=== PATIENT | male | born 1940 | race Caucasian/White ===

== ENCOUNTER 2018-05-15 14:36 | Inpatient (IN) | payer OTHER ==
[~2018-05-15] VITALS: Ht 170.2 cm; Wt 68.4 kg
--- NOTE | ~2018-05-15 | PATH ---
[facility] [address] [place] [address] PATHOLOGY RPT PROCEDURE Name: MOONMARYJANE E Room #: 212-P DIS IN M.R.#: [id number] Admission: 05/15/18 Date of : 44 Discharge: 05/18/18 Report #: [id number] Path Case #: [id number] [facility] Accession Number: [id number] . 01 Material submitted: . BIOPSY OF H.PYLORI GASTRIC . 01 Clinical history: . Pre-OP DX: Melena, abdominal pain, nausea Post-OP DX: Duodenal ulcers . 02 Diagnosis: Gastric mucosa, "H. pylori", endoscopic biopsy: - Gastric mucosa showing Helicobacter pylori-induced moderate active gastritis (properly controlled immunohistochemical stain performed). - Negative for intestinal metaplasia or atrophy. (IUV:zoraida; 05/19/2018) QMS/05/20/2018 . 02 Electronically signed: . Elizabeth Gregory MD, Pathologist NPI- [id number] . 01 Gross description: . Received in formalin labeled "Maryjane Mix BX of H. pylori," and additionally labeled on the requisition as "gastric per Dr. Gregory," are 2 segments of baca soft tissue measuring 0.6 x 0.2 x 0.2 cm in aggregate dimensions and measuring 0.3 cm each in maximum dimension. The specimen is submitted entirely in cassette A1. (TSD; 05/16/2018) TOB/TOB . 02 Pathologist provided ICD-10: K29.70, B96.81 . 02 CPT . 353612, X54196 Performed at: [address], [place] [id number] MD Wilfrid Aleman MD Phone: [phone] Performed at: [address] [id number] MD Elizabeth Gregory MD Phone: [phone]
--- NOTE | ~2018-05-15 | EKG ---
[place] [address] [facility] [employer] [place] [address] ELECTROCARDIOGRAM REPORT Name: MARYJANE MUSTAFA Room #: 212-P ADM IN M.R.#: [id number] Admission: 05/15/18 Attend Phys: Eriberto Olsen MD Discharge: Date of : 44 Report #: [id number] THIS REPORT FOR: //name// [facility] Test Date: 2018-05-16 Test Time: 19:58:56 Pat Name: MARYJANE MUSTAFA Department: Room: 212 P Gender: M [employer] Pricer: Katherin ANTHONY : 1940 Requested By: Eriberto Olsen Order Number: [id number] MD: Sky Ernst Measurements Intervals [place] Rate: 63 P: 76 DE: 181 QRS: -8 QRSD: 100 T: 66 QT: 382 QTc: 392 Interpretive Statements Sinus rhythm RSR' in V1 or V2, probably normal variant Baseline wander in lead(s) V6 Compared to ECG 05/15/2018 17:30:39 Sinus rhythm has replaced atrial fibrillation Electronically Signed On 05-17-2018 10:55:13 CDT by Sky Ernst [email or web address] <ELECTRONICALLY SIGNED> By: Sky Ernst MD, [facility] 05/17/18 1055 57 57 Sky Ernst MD, [facility] /EPI
--- NOTE | ~2018-05-15 | EKG ---
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: [facility] : 1940 Requested By: Cristal Jacob Order Number: [id number] MD: Sky Ernst Measurements Intervals [place] Rate: 155 P: NC: QRS: -49 QRSD: 86 T: 91 QT: 298 QTc: 479 Interpretive Statements Atrial fibrillation with rapid V-rate LAD Repolarization abnormality, prob rate related No previous ECG available for comparison Electronically Signed On 05-16-2018 8:08:42 CDT by Sky Ernst [email or web address] <ELECTRONICALLY SIGNED> By: Sky Ernst MD, [facility] 05/16/18 0808 [id number] 173 Sky Ernst MD, [facility] /EPI
--- NOTE | ~2018-05-15 | 2DMMODE ---
[facility] [address] [place] [address] 2 D/M-MODE ECHOCARDIOGRAM Name: MARYJANE MUSTAFA Room #: 212-P [facility] IN .R.#: [id number] Admission: 05/15/18 Attend Phys: Eriberto Olsen, Discharge: Date of : 44 Date of Service: 05/16/18 0918 Report #: [id number] THIS REPORT FOR: //name// APPROVED REPORT Study performed: 05/16/2018 08:25:04 EXAM: Comprehensive 2D, Doppler, and color-flow Echocardiogram Patient Location: Bedside Room #: [facility] Status: routine BSA: 1.77 HR: 90 bpm BP: 114/74 mmHg Rhythm: Atrial Fibrillation Other Information Study Quality: Adequate Indications Atrial Fibrillation 2D Dimensions RVDd: 27.76 mm LVEF(%): 65.62 (>50%) IVSd: 10.97 (7-11mm) LVOT Diam: 20.58 (18-24mm) LVDd: 40.40 mm PWd: 11.97 (7-11mm) Ascending Ao: 36.81 (22-36mm) LVDs: 26.01 (25-40mm) Aortic Root: 32.90 mm IVC: 16.00 mm Keith's LVEF: 65.62 % Volumes Left Atrial Volume (Systole) Single Plane 4CH: 32.89 mL Single Plane 2CH: 37.95 mL LA ESV Index: 24.00 mL/m2 Aortic Valve AoV Peak Hesham.: 1.36 m/s AO Peak Gr.: 7.39 mmHg LVOT Max P.40 mmHg LVOT Max V: 1.27 m/s ALFRED Vmax: 3.09 cm2 Pulmonary Valve PV Peak Hesham.: 1.01 m/s PV Peak Gr.: 4.07 mmHg [facility] [place] [address] 2 D/M-MODE ECHOCARDIOGRAM Name: MOONMARYJANE E Room #: 212-P [facility] IN .R.#: [id number] Admission: 05/15/18 Attend Phys: Eriberto Olsen, Discharge: Date of : 44 Date of Service: 05/16/18 0918 Report #: [id number] Tricuspid Valve TR Peak Hesham.: 2.28 m/s TR Peak Gr.: 20.82 mmHg PA Pressure: 26.00 mmHg Left Ventricle The left ventricle is normal size. There is normal LV segmental wall motion. There is normal left ventricular wall thickness. Left ventricular systolic function is normal. The left ventricular ejection fraction is within the normal range. LVEF is 60-65%. This study is not technically sufficient to allow evaluation of the LV diastolic function. Right Ventricle The right ventricle is normal size. The right ventricular systolic function is normal. Atria The left atrium size is normal. The right atrium size is normal. Aortic Valve Aortic valve is not well visualized. No aortic regurgitation is present. There is no aortic valvular stenosis. Mitral Valve The mitral valve is normal in structure. There is no mitral valve regurgitation noted. No evidence of mitral valve stenosis. Tricuspid Valve The tricuspid valve is normal in structure. There is trace tricuspid regurgitation. Estimated PAP 26 mmHg. There is no pulmonary hypertension. Pulmonic Valve The pulmonary valve is normal in structure. There is no pulmonic valvular regurgitation. Great Vessels The aortic root is normal in size. IVC is normal in size and collapses with >50% inspiration Pericardium There is no pericardial effusion. <Conclusion> [facility] [address] [place] [address] 2 D/M-MODE ECHOCARDIOGRAM Name: MARYJANE MUSTAFA Room #: 212-P [facility] IN ..#: [id number] Admission: 05/15/18 Attend Phys: Eriberto Olsen, Discharge: Date of : 44 Date of Service: 05/16/18 0918 Report #: [id number] Left ventricular systolic function is normal. There is normal LV segmental wall motion. LVEF is 60-65%. Aortic valve is not well visualized. No aortic regurgitation or stenosis The mitral valve is normal in structure. No mitral valve regurgitation. There is trace tricuspid regurgitation. Estimated pulmonary artery pressure of 26 mmHg. There is no pericardial effusion. <ELECTRONICALLY SIGNED> By: Sky Ernst MD, [facility] 05/16/18917 7 7 Sky Ernst MD, [facility] /INF
--- NOTE | ~2018-05-15 | EKG ---
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 : 1940 Requested By: Sky Ernst Order Number: [id number] MD: Sky Ernst Measurements Intervals [place] Rate: 56 P: 49 [place]: 178 QRS: -17 QRSD: 98 T: 61 QT: 423 QTc: 409 Interpretive Statements Sinus bradycardia Borderline left axis deviation Abnormal R-wave progression, early transition Consider anterior infarct Baseline wander in lead(s) I,II,aVR Compared to ECG 05/16/2018 19:58:56 Septal Q waves are more prominent Electronically Signed On 05-18-2018 13:54:26 CDT by Sky Ernst [email or web address] <ELECTRONICALLY SIGNED> By: Sky Ernst MD, [facility] 05/18/18 1354 0741 0741 Sky Ernst MD, [facility] /EPI
[2018-05-15 14:47] VITALS: BP 135/85
[2018-05-15 15:31] LABS: HEMATOCRIT 37.1 % (42.0-52.0); HEMOGLOBIN 12.7 gm/dL (14.0-18.0); MCH 31.5 pg (26.0-34.0); MCHC 34.3 g/dL (28.0-37.0); MCV 91.6 fL (80.0-100.0); RBC 4.05 mil/uL (4.50-6.00); WBC 9.9 thou/uL (4.0-11.0)
[2018-05-15 15:37] LABS: CALCIUM 8.6 mg/dL (8.5-10.1); CREATININE 1.2 mg/dL (0.7-1.3)
[2018-05-15 15:43] LABS: ALBUMIN 3.7 g/dL (3.4-5.0); TOTAL BILIRUBIN 0.9 mg/dL (<0.1-1.0); TOTAL PROTEIN 7.1 g/dL (6.4-8.2)
[2018-05-15 15:52] LABS: URINE BILIRUBIN NEGATIVE (Negative); URINE BLOOD NEGATIVE (Negative); URINE CLARITY CLEAR; URINE COLOR YELLOW; URINE GLUCOSE-RANDOM* NEGATIVE (Negative); URINE KETONES TRACE (Negative); URINE LEUKOCYTES NEGATIVE (Negative); URINE NITRITE NEGATIVE (Negative); URINE PROTEIN (DIPSTICK) NEGATIVE (Negative); URINE SPECIFIC GRAVITY 1.025 (1.005-1.035); URINE UROBILINOGEN 0.2 E.U./dl (0.2-1.0)
[2018-05-15 18:48] VITALS: BP 105/78
[2018-05-15 19:10] VITALS: BP 102/58
[2018-05-15 19:40] VITALS: BP 141/89
[2018-05-15] MEDS ORDERED: ASPIR 8181 MG PO (20:19)
[2018-05-15] MEDS ORDERED: ANTACID325 MG PO (20:20)
[2018-05-15] MEDS ORDERED: MILK OF MA2400 MG/10 PO (20:22)
[2018-05-15] MEDS ORDERED: IMODIUM A-D2 MG PO (20:22)
[2018-05-15 21:13] LABS: HEMATOCRIT 31.6 % (42.0-52.0); HEMOGLOBIN 11.1 gm/dL (14.0-18.0)
[2018-05-16 00:45] VITALS: BP 109/69
[2018-05-16 04:38] VITALS: BP 107/67
[2018-05-16 05:00] LABS: CALCIUM 7.9 mg/dL (8.5-10.1); CREATININE 0.9 mg/dL (0.7-1.3); POTASSIUM 4.2 mmol/L (3.5-5.1); TOTAL PROTEIN 5.7 g/dL (6.4-8.2)
[2018-05-16 07:34] VITALS: BP 114/74
[2018-05-16 09:36] LABS: CHOLESTEROL 144 mg/dL (<200); HDL CHOLESTEROL 43 mg/dL (>40); LDL CHOLESTEROL 84 mg/dL (<100); TC:HDL 3.3 Ratio (Not establshd); TRIGLYCERIDE 89 mg/dL (<150); VLDL 18 mg/dL (<40)
[2018-05-16 12:08] VITALS: BP 123/70
[2018-05-16 17:02] VITALS: BP 122/100
[2018-05-16 21:03] LABS: HEMATOCRIT 27.6 % (42.0-52.0); HEMOGLOBIN 9.6 gm/dL (14.0-18.0)
[2018-05-16 23:57] VITALS: BP 97/55
[2018-05-17 04:38] VITALS: BP 114/65
[2018-05-17 07:18] VITALS: BP 99/59
[2018-05-17 11:46] VITALS: BP 111/67
[2018-05-17 20:00] VITALS: BP 108/55
[2018-05-18 04:15] VITALS: BP 108/55
[2018-05-18 07:13] VITALS: BP 107/47
[2018-05-18] MEDS ORDERED: PACERONE 200 M200 M1 PO (09:34)
[2018-05-18] MEDS ORDERED: LOPRESSOR50 PO (09:35)
[2018-05-18] MEDS ORDERED: PROTONIX40 M1 PO (09:36)
[2018-05-18 11:13] VITALS: BP 92/61
[2018-05-18 11:35] VITALS: BP 92/61
[2018-05-18] MEDS ORDERED: TOPROL XL25 MG PO (13:07)
== END 2018-05-18 14:56 | disposition home or self-care (01) | DRG 377 ==
LOC: ER 14:36 → EROBS 18:30 → 2N 18:30
PROVIDERS: Family Medicine; Nurse Practitioner Adult Health; Student in an Organized Health Care Education/Training Program
PROC: 0DB78ZX Excision of Stomach, Pylorus, Via Natural or Artificial Opening Endoscopic, Diagnostic (ICD-10-PCS; principal; 2018-05-16)
PROC: 0D598ZZ Destruction of Duodenum, Via Natural or Artificial Opening Endoscopic (ICD-10-PCS; principal; 2018-05-16)
PROC: 3E0G8GC Introduction of Other Therapeutic Substance into Upper GI, Via Natural or Artificial Opening Endoscopic (ICD-10-PCS; principal; 2018-05-16)
DX: K26.4 Chronic or unspecified duodenal ulcer with hemorrhage (principal); N17.0 Acute kidney failure with tubular necrosis; K25.9 Gastric ulcer, unspecified as acute or chronic, without hemorrhage or perforation; K20.9 Esophagitis, unspecified; D64.9 Anemia, unspecified; I77.1 Stricture of artery; K44.9 Diaphragmatic hernia without obstruction or gangrene; K26.9 Duodenal ulcer, unspecified as acute or chronic, without hemorrhage or perforation; I48.91 Unspecified atrial fibrillation; K21.9 Gastro-esophageal reflux disease without esophagitis; Z87.891 Personal history of nicotine dependence; Z79.82 Long term (current) use of aspirin; Z79.899 Other long term (current) drug therapy
CPT/HCPCS: 10081; 62110; 62900

== ENCOUNTER → 2018-06-02 | Outpatient (CLI) | payer OTHER ==
[~2018-06-02] MED LIST: ANTACID325 MG PO; ASPIR 8181 MG PO; IMODIUM A-D2 MG PO; LOPRESSOR50 PO; MILK OF MA2400 MG/10 PO; PACERONE 200 M200 M1 PO; PROTONIX40 M1 PO; TOPROL XL25 MG PO
== END ==
LOC: CAT 15:56
DX: K80.20 Calculus of gallbladder without cholecystitis without obstruction (principal); I70.0 Atherosclerosis of aorta

== ENCOUNTER 2018-08-27 15:10 | Emergency (ER) | payer OTHER ==
[~2018-08-27] VITALS: Ht 170.2 cm; Wt 68.0 kg
--- NOTE | ~2018-08-27 | EKG ---
[place] [address] [facility] [place] [address] ELECTROCARDIOGRAM REPORT Name: MARYJANE MUSTAFA [id number] Admission: 08/27/18 Attend Phys: Discharge: 08/27/18 Date of : 44 Report #: [id number] THIS REPORT FOR: //name// [facility] ED Test Date: 2018-08-27 Test Time: 15:21:35 Pat Name: MARYJANE MUSTAFA Department: Room: Gender: M Shank Paperer: IDALARA : 1940 Requested By: Acosta Awad Order Number: [id number] MD: Sky Ernst Measurements Intervals [place] Rate: 72 P: 74 HI: 205 QRS: -47 QRSD: 114 T: 72 QT: 402 QTc: 440 Interpretive Statements Sinus rhythm Leftward axis Possible septal infarct, age indeterminate Compared to ECG 05/18/2018 07:41:54 Sinus bradycardia no longer present Electronically Signed On 08-28-2018 8:02:39 [employer]OM[employer] CALIBRATOR by Sky Ernst [email or web address] <ELECTRONICALLY SIGNED> By: Sky Ernst MD, [facility] 08/28/18 0802 152 152 Sky Ernst MD, [facility] /EPI
[~2018-08-27 15:10] MED LIST changes: +CARAFATE 1 GM TA1 G1 PO; +CARTIA XT180 M1 PO; +FLOMAX0.4 MG PO; +METOPROLOL SUCC50 MG PO; +NAMZARIC 7 MG-1 EACH PO
[2018-08-27 16:16] LABS: ABSOLUTE NEUTROPHILS 2.7 thou/uL (1.4-8.2); BASOPHILS 1.2 % (0.0-2.0); EOSINOPHILS 1.7 % (0.0-3.0); HEMATOCRIT 36.2 % (42.0-52.0); HEMOGLOBIN 12.1 gm/dL (14.0-18.0); LYMPHOCYTES 33.6 % (24.0-44.0); MCH 27.4 pg (26.0-34.0); MCHC 33.3 g/dL (28.0-37.0); MCV 82.2 fL (80.0-100.0); MONOCYTES 10.2 % (1.0-8.0); PLATELET COUNT 365 thou/uL (150-400); POLYS 53.3 % (36.0-66.0); RDW 14.2 % (10.5-14.5)
[2018-08-27 16:25] LABS: ANION GAP 9 mmol/L (7-16); BUN 20 mg/dL (7-18); CHLORIDE 104 mmol/L (98-107); CO2 26 mmol/L (21-32); CREATININE 1.2 mg/dL (0.7-1.3); GLUCOSE 78 mg/dL (74-106); POTASSIUM 4.2 mmol/L (3.5-5.1); SODIUM 139 mmol/L (136-145)
[2018-08-27 16:34] LABS: TROPONIN-I <0.06 ng/mL (<0.06)
[2018-08-27 17:33] LABS: URINE BILIRUBIN NEGATIVE (Negative); URINE BLOOD NEGATIVE (Negative); URINE CLARITY CLEAR; URINE COLOR YELLOW; URINE GLUCOSE-RANDOM* NEGATIVE (Negative); URINE KETONES NEGATIVE (Negative); URINE LEUKOCYTES-REFLEX NEGATIVE (Negative); URINE NITRITE-REFLEX NEGATIVE (Negative); URINE PROTEIN (DIPSTICK) NEGATIVE (Negative); URINE UROBILINOGEN 0.2 E.U./dl (0.2-1.0)
[2018-08-27] MEDS ORDERED: LISINOPRIL5 MG PO (17:37)
[2018-08-27] MEDS ORDERED: DOXYCYCLINE HY100 M3 PO (17:37)
[2018-08-27 18:15] VITALS: BP 149/69
== END 2018-08-27 18:16 | disposition home or self-care (01) ==
LOC: ER 15:10
PROVIDERS: Emergency Medicine
DX: R42 Dizziness and giddiness (principal); K21.9 Gastro-esophageal reflux disease without esophagitis; I10 Essential (primary) hypertension; I48.91 Unspecified atrial fibrillation; F03.90 Unspecified dementia, unspecified severity, without behavioral disturbance, psychotic disturbance, mood disturbance, and anxiety

== ENCOUNTER → 2019-12-23 | Outpatient (CLI) | payer OTHER ==
[~2019-12-23] MED LIST changes: +DOXYCYCLINE HY100 M3 PO; +LISINOPRIL5 MG PO
== END ==
LOC: SJCVCIMAG 15:30
DX: I08.0 Rheumatic disorders of both mitral and aortic valves (principal); I11.9 Hypertensive heart disease without heart failure; I48.0 Paroxysmal atrial fibrillation; R00.1 Bradycardia, unspecified; N12 Tubulo-interstitial nephritis, not specified as acute or chronic; R41.3 Other amnesia; R30.0 Dysuria; R53.82 Chronic fatigue, unspecified

== ENCOUNTER → 2020-06-20 | Outpatient (CLI) | payer OTHER | LOC: LAB 08:32 | PROVIDERS: ATTEND Neuromusculoskeletal Medicine & OMM | DX: U07.1 COVID-19 (principal) ==

== ENCOUNTER → 2020-08-24 | Outpatient (CLI) | payer OTHER | LOC: RAD 14:20 | PROVIDERS: ATTEND Neuromusculoskeletal Medicine & OMM | DX: J84.10 Pulmonary fibrosis, unspecified (principal) ==

== ENCOUNTER → 2021-01-24 | Outpatient (CLI) | payer OTHER | LOC: SJCVC 10:48 | PROVIDERS: ATTEND Internal Medicine Cardiovascular Disease | DX: I44.0 Atrioventricular block, first degree (principal); I48.0 Paroxysmal atrial fibrillation; Z79.899 Other long term (current) drug therapy; Z86.16 Personal history of COVID-19; I10 Essential (primary) hypertension; K27.9 Peptic ulcer, site unspecified, unspecified as acute or chronic, without hemorrhage or perforation ==